=== PATIENT | female | born 1945 | race Two or more races ===

== ENCOUNTER 2020-05-11 10:28 | Outpatient (CLI) | payer MEDICARE ==
[2020-05-11 11:31] LABS: BASOPHILS % (AUTO) 0.3 % (0.0-2.0); HEMATOCRIT 34 % (33-45); LYMPHOCYTES # (AUTO) 0.6 /CMM (0.8-4.8); LYMPHOCYTES % (AUTO) 11.3 % (20.0-44.0); MEAN CORPUSCULAR HGB CONC 32 g/dl (31.0-36.0); MEAN CORPUSCULAR VOLUME 91 fL (82-100); MONOCYTES # (AUTO) 0.3 /CMM (0.1-1.30); NEUTROPHILS # (AUTO) 4.5 /CMM (1.8-8.9); NEUTROPHILS % (AUTO) 82.4 % (43.0-81.0); PLATELET COUNT (AUTO) 232 /CMM (150-450); RED BLOOD CELL COUNT(AUTO) 3.77 MIL/uL (4.0-5.2); WHITE BLOOD COUNT (AUTO) 5.5 K/uL (4.3-11.0)
[2020-05-11 11:56] LABS: ALANINE AMINOTRANSFERASE 43 U/L (12-78); ALBUMIN 3.5 g/dL (3.4-5.0); ALKALINE PHOSPHATASE 151 U/L (46-116); ASPARTATE AMINOTRANSFERASE 35 U/L (15-37); BILIRUBIN,TOTAL 0.4 mg/dL (0.2-1.0); CALCIUM, SERUM 7.8 mg/dL (8.5-10.1); CARBON DIOXIDE 23 mmol/L (21-32); CHLORIDE 103 mmol/L (98-107); CREATININE 2.9 mg/dL (0.6-1.3); GLUCOSE 177 mg/dL (74-106); MAGNESIUM 2.4 mg/dL (1.8-2.4); PHOSPHORUS 3.7 mg/dL (2.5-4.9); POTASSIUM 5.4 mmol/L (3.5-5.1); SODIUM SERUM 137 mmol/L (136-145); TOTAL PROTEIN, SERUM 7.5 g/dL (6.4-8.2); UREA NITROGEN, BLOOD 46 mg/dL (7-18)
== END 2020-05-11 23:59 | disposition home or self-care (01) ==
LOC: MSC 10:28
PROVIDERS: ATTEND Internal Medicine
DX: E83.51 Hypocalcemia (principal); I12.9 Hypertensive chronic kidney disease with stage 1 through stage 4 chronic kidney disease, or unspecified chronic kidney disease; N18.4 Chronic kidney disease, stage 4 (severe); D64.9 Anemia, unspecified; E78.5 Hyperlipidemia, unspecified; E03.9 Hypothyroidism, unspecified; Z79.899 Other long term (current) drug therapy
CPT/HCPCS: 36415; 80053; 82306; 83735; 83970; 84100; 85025; G0463

== ENCOUNTER 2020-06-01 10:39 | Outpatient (CLI) | payer MEDICARE, MEDICAID | END 2020-06-01 23:59 | disposition home or self-care (01) | LOC: MSC 10:39 | PROVIDERS: ATTEND Internal Medicine | DX: I16.0 Hypertensive urgency (principal); I12.9 Hypertensive chronic kidney disease with stage 1 through stage 4 chronic kidney disease, or unspecified chronic kidney disease; N18.4 Chronic kidney disease, stage 4 (severe); E83.9 Disorder of mineral metabolism, unspecified; D64.9 Anemia, unspecified; E78.5 Hyperlipidemia, unspecified; E03.9 Hypothyroidism, unspecified; Z79.899 Other long term (current) drug therapy ==

== ENCOUNTER 2020-06-01 11:38 | Emergency (ER) | payer MEDICARE, OTHER ==
[~2020-06-01] VITALS: Ht 149.9 cm; Wt 70.8 kg
--- NOTE | 2020-06-01 11:45 | NUR ---
BLOOD PRESSURE WAS ALEVATED AT THE CLINIC (YRQ=415), DENIES ANY SX OTHER THAN KNEE PAIN/SWELLING. PATIENT A/OX4, BREATHING EVEN AND UNLABORED, NO SOB NTOED, NEEDS ATTENDED, ATTACHED TO THE FOOD PRODUCTION ASSOCIATE.
[2020-06-01 12:06] LABS: BASOPHILS % (AUTO) 0.8 % (0.0-2.0); HEMATOCRIT 35 % (33-45); HEMOGLOBIN 11.1 g/dL (11.5-14.8); LYMPHOCYTES # (AUTO) 0.8 /CMM (0.8-4.8); LYMPHOCYTES % (AUTO) 23.6 % (20.0-44.0); MEAN CORPUSCULAR HGB CONC 32 g/dl (31.0-36.0); MEAN CORPUSCULAR VOLUME 92 fL (82-100); MONOCYTES # (AUTO) 0.3 /CMM (0.1-1.30); MONOCYTES % (AUTO) 8.7 % (2.0-12.0); NEUTROPHILS # (AUTO) 2.1 /CMM (1.8-8.9); NEUTROPHILS % (AUTO) 63.9 % (43.0-81.0); PLATELET COUNT (AUTO) 182 /CMM (150-450); RED BLOOD CELL COUNT(AUTO) 3.78 MIL/uL (4.0-5.2); WHITE BLOOD COUNT (AUTO) 3.3 K/uL (4.3-11.0)
[2020-06-01 12:38] LABS: ALANINE AMINOTRANSFERASE 24 U/L (12-78); ALBUMIN 3.2 g/dL (3.4-5.0); ALKALINE PHOSPHATASE 108 U/L (46-116); ASPARTATE AMINOTRANSFERASE 13 U/L (15-37); BILIRUBIN,TOTAL 0.3 mg/dL (0.2-1.0); CALCIUM, SERUM 7.7 mg/dL (8.5-10.1); CARBON DIOXIDE 26 mmol/L (21-32); CHLORIDE 107 mmol/L (98-107); CREATININE 2.5 mg/dL (0.6-1.3); GLUCOSE 163 mg/dL (74-106); MAGNESIUM 2.5 mg/dL (1.8-2.4); POTASSIUM 4.6 mmol/L (3.5-5.1); SODIUM SERUM 141 mmol/L (136-145); TOTAL PROTEIN, SERUM 6.7 g/dL (6.4-8.2); UREA NITROGEN, BLOOD 41 mg/dL (7-18)
[2020-06-01 13:16] VITALS: BP 182/99
--- NOTE | 2020-06-01 13:16 | NUR ---
PATIENT A/OX4, AMBULATORY WITH STEADY GAIT, NO DISTRESS NOTED, NO COMPLAINTS AT THIS TIME. Patient discharged to home in stable condition. Written and verbal after care instructions given. Patient verbalizes understanding of instruction.
== END 2020-06-01 13:17 | disposition home or self-care (01) ==
LOC: ER 11:38
DX: I10 Essential (primary) hypertension (principal); R60.0 Localized edema; E11.9 Type 2 diabetes mellitus without complications
CPT/HCPCS: 36415; 80053-TC; 83735-TC; 83970; 85025-TC

== ENCOUNTER 2020-08-09 09:33 | Outpatient (CLI) | payer MEDICARE, OTHER ==
[2020-08-09 13:03] LABS: ALANINE AMINOTRANSFERASE 18 U/L (12-78); ALBUMIN 2.9 g/dL (3.4-5.0); ALKALINE PHOSPHATASE 65 U/L (46-116); ASPARTATE AMINOTRANSFERASE 22 U/L (15-37); BILIRUBIN,TOTAL 0.3 mg/dL (0.2-1.0); CALCIUM, SERUM 8.5 mg/dL (8.5-10.1); CARBON DIOXIDE 22 mmol/L (21-32); CHLORIDE 106 mmol/L (98-107); CREATININE 3.1 mg/dL (0.6-1.3); GLUCOSE 119 mg/dL (74-106); MAGNESIUM 2.2 mg/dL (1.8-2.4); PHOSPHORUS 4.7 mg/dL (2.5-4.9); POTASSIUM 4.3 mmol/L (3.5-5.1); SODIUM SERUM 140 mmol/L (136-145); TOTAL PROTEIN, SERUM 6.6 g/dL (6.4-8.2); UREA NITROGEN, BLOOD 49 mg/dL (7-18)
== END 2020-08-09 23:59 | disposition home or self-care (01) ==
LOC: MSC 09:33
PROVIDERS: ATTEND Internal Medicine
DX: I12.9 Hypertensive chronic kidney disease with stage 1 through stage 4 chronic kidney disease, or unspecified chronic kidney disease (principal); E11.22 Type 2 diabetes mellitus with diabetic chronic kidney disease; N18.4 Chronic kidney disease, stage 4 (severe); Z79.4 Long term (current) use of insulin; E83.9 Disorder of mineral metabolism, unspecified; D64.9 Anemia, unspecified; E78.5 Hyperlipidemia, unspecified; E03.9 Hypothyroidism, unspecified; Z79.899 Other long term (current) drug therapy
CPT/HCPCS: 36415; 80053; 82607; 82746; 83036; 83735; 84100; G0463

== ENCOUNTER 2020-08-23 09:22 | Outpatient (CLI) | payer MEDICARE, OTHER ==
[2020-08-23 11:39] LABS: ALANINE AMINOTRANSFERASE 27 U/L (12-78); ALKALINE PHOSPHATASE 79 U/L (46-116); ASPARTATE AMINOTRANSFERASE 18 U/L (15-37); BILIRUBIN,TOTAL 0.3 mg/dL (0.2-1.0); CALCIUM, SERUM 8.7 mg/dL (8.5-10.1); CARBON DIOXIDE 26 mmol/L (21-32); CHLORIDE 104 mmol/L (98-107); CREATININE 3.2 mg/dL (0.6-1.3); GLUCOSE 176 mg/dL (74-106); MAGNESIUM 2.5 mg/dL (1.8-2.4); PHOSPHORUS 5.4 mg/dL (2.5-4.9); POTASSIUM 4.6 mmol/L (3.5-5.1); SODIUM SERUM 142 mmol/L (136-145); TOTAL PROTEIN, SERUM 6.9 g/dL (6.4-8.2); UREA NITROGEN, BLOOD 43 mg/dL (7-18)
== END 2020-08-23 23:59 | disposition home or self-care (01) ==
LOC: MSC 09:22
PROVIDERS: ATTEND Internal Medicine
DX: I12.9 Hypertensive chronic kidney disease with stage 1 through stage 4 chronic kidney disease, or unspecified chronic kidney disease (principal); E11.22 Type 2 diabetes mellitus with diabetic chronic kidney disease; N18.4 Chronic kidney disease, stage 4 (severe); Z79.4 Long term (current) use of insulin; E83.9 Disorder of mineral metabolism, unspecified; D64.9 Anemia, unspecified; E78.5 Hyperlipidemia, unspecified; E03.9 Hypothyroidism, unspecified; R53.83 Other fatigue; Z79.899 Other long term (current) drug therapy
CPT/HCPCS: 36415; 80053; 82607; 83036; 83735; 84100; G0463

== ENCOUNTER 2021-02-23 11:03 | Outpatient (CLI) | payer MEDICARE, OTHER | END 2021-02-23 23:59 | disposition home or self-care (01) | LOC: MSC 11:03 | PROVIDERS: ATTEND Internal Medicine | DX: Z01.818 Encounter for other preprocedural examination (principal); E11.22 Type 2 diabetes mellitus with diabetic chronic kidney disease; I12.9 Hypertensive chronic kidney disease with stage 1 through stage 4 chronic kidney disease, or unspecified chronic kidney disease; N18.4 Chronic kidney disease, stage 4 (severe); Z79.4 Long term (current) use of insulin; E83.9 Disorder of mineral metabolism, unspecified; D64.9 Anemia, unspecified; E78.5 Hyperlipidemia, unspecified; E03.9 Hypothyroidism, unspecified; R53.83 Other fatigue; Z79.890 Hormone replacement therapy; Z79.899 Other long term (current) drug therapy ==

== ENCOUNTER → 2021-06-27 | Outpatient (CLI) | payer MEDICARE, OTHER | END | disposition home or self-care (01) | LOC: MSC 14:15 | PROVIDERS: ATTEND Internal Medicine | DX: E11.22 Type 2 diabetes mellitus with diabetic chronic kidney disease (principal); I12.0 Hypertensive chronic kidney disease with stage 5 chronic kidney disease or end stage renal disease; N18.5 Chronic kidney disease, stage 5; Z79.4 Long term (current) use of insulin; E83.9 Disorder of mineral metabolism, unspecified; D64.9 Anemia, unspecified; E78.5 Hyperlipidemia, unspecified; E03.9 Hypothyroidism, unspecified; R53.83 Other fatigue; Z79.899 Other long term (current) drug therapy ==

== ENCOUNTER 2021-12-19 10:18 | Outpatient (CLI) | payer MEDICARE, OTHER ==
[2021-12-19 11:40] LABS: BASOPHILS % (AUTO) 0.5 % (0.0-2.0); EOSINOPHILS % (AUTO) 1.4 % (0.0-6.0); HEMATOCRIT 30 % (33-45); HEMOGLOBIN 9.9 g/dL (11.5-14.8); MEAN CORPUSCULAR HGB CONC 33 g/dl (31.0-36.0); MEAN CORPUSCULAR VOLUME 90 fL (82-100); MONOCYTES # (AUTO) 0.4 K/uL (0.1-1.30); MONOCYTES % (AUTO) 8.4 % (2.0-12.0); NEUTROPHILS # (AUTO) 3.6 K/uL (1.8-8.9); NEUTROPHILS % (AUTO) 70.7 % (43.0-81.0); PLATELET COUNT (AUTO) 267 K/uL (150-450); RED BLOOD CELL COUNT(AUTO) 3.31 MIL/uL (4.0-5.2)
[2021-12-19 12:34] LABS: ALANINE AMINOTRANSFERASE 15 U/L (12-78); ALBUMIN 3.3 g/dL (3.4-5.0); ALKALINE PHOSPHATASE 71 U/L (46-116); ASPARTATE AMINOTRANSFERASE 11 U/L (15-37); CALCIUM, SERUM 10.8 mg/dL (8.5-10.1); CARBON DIOXIDE 22 mmol/L (21-32); CHLORIDE 103 mmol/L (98-107); CREATININE 5.9 mg/dL (0.6-1.3); GLUCOSE 194 mg/dL (74-106); MAGNESIUM 1.9 mg/dL (1.8-2.4); PHOSPHORUS 5.5 mg/dL (2.5-4.9); POTASSIUM 5.2 mmol/L (3.5-5.1); SODIUM SERUM 138 mmol/L (136-145); TOTAL PROTEIN, SERUM 7.3 g/dL (6.4-8.2); UREA NITROGEN, BLOOD 69 mg/dL (7-18)
[2021-12-19 14:48] LABS: BILIRUBIN,TOTAL 0.3 mg/dL (0.2-1.0)
== END 2021-12-19 23:59 | disposition home or self-care (01) ==
LOC: MSC 10:18
PROVIDERS: ATTEND Internal Medicine
DX: I12.9 Hypertensive chronic kidney disease with stage 1 through stage 4 chronic kidney disease, or unspecified chronic kidney disease (principal); N18.4 Chronic kidney disease, stage 4 (severe); E83.9 Disorder of mineral metabolism, unspecified; M89.9 Disorder of bone, unspecified; D64.9 Anemia, unspecified; E78.5 Hyperlipidemia, unspecified; E03.9 Hypothyroidism, unspecified; Z79.890 Hormone replacement therapy; Z79.899 Other long term (current) drug therapy
CPT/HCPCS: 36415; 80053; 82306; 83735; 83970; 84100; 85025; G0463

== ENCOUNTER → 2022-01-23 | Outpatient (CLI) | payer MEDICARE, OTHER | END | disposition home or self-care (01) | LOC: MSC 14:30 | PROVIDERS: ATTEND Internal Medicine | DX: I12.9 Hypertensive chronic kidney disease with stage 1 through stage 4 chronic kidney disease, or unspecified chronic kidney disease (principal); N18.4 Chronic kidney disease, stage 4 (severe); N39.0 Urinary tract infection, site not specified; E83.9 Disorder of mineral metabolism, unspecified; M89.9 Disorder of bone, unspecified; D64.9 Anemia, unspecified; E78.5 Hyperlipidemia, unspecified; E03.9 Hypothyroidism, unspecified; Z79.890 Hormone replacement therapy; R53.83 Other fatigue ==

== ENCOUNTER 2022-04-26 09:27 | Outpatient (CLI) | payer MEDICARE, OTHER ==
[2022-04-26 10:32] LABS: BASOPHILS % (AUTO) 0.3 % (0.0-2.0); EOSINOPHILS % (AUTO) 0.3 % (0.0-6.0); HEMATOCRIT 31 % (33-45); HEMOGLOBIN 10.2 g/dL (11.5-14.8); LYMPHOCYTES # (AUTO) 0.8 K/uL (0.8-4.8); LYMPHOCYTES % (AUTO) 15.7 % (20.0-44.0); MEAN CORPUSCULAR HGB CONC 33 g/dl (31.0-36.0); MEAN CORPUSCULAR VOLUME 95 fL (82-100); MONOCYTES # (AUTO) 0.4 K/uL (0.1-1.30); MONOCYTES % (AUTO) 9.2 % (2.0-12.0); NEUTROPHILS # (AUTO) 3.6 K/uL (1.8-8.9); NEUTROPHILS % (AUTO) 74.5 % (43.0-81.0); PLATELET COUNT (AUTO) 226 K/uL (150-450); RED BLOOD CELL COUNT(AUTO) 3.24 MIL/uL (4.0-5.2); WHITE BLOOD COUNT (AUTO) 4.8 K/uL (4.3-11.0)
[2022-04-26 10:35] LABS: BILIRUBIN,URINE NEGATIVE (NEGATIVE); COLOR,URINE YELLOW (YELLOW); LEUKOCYTE ESTERASE ,URINE SMALL (NEGATIVE); NITRITE, URINE NEGATIVE (NEGATIVE); PH,URINE 5.5 (5.0-8.0); PROTEIN,URINE 100 mg/dl (NEGATIVE); UGLUCOSE 500 MG/DL mg/dL (NEGATIVE); UROBILINOGEN,URINE 0.2 EU/dL (0.2)
[2022-04-26 10:41] LABS: BACTERIA,URINE Few /HPF (None Seen); RBC,URINE 0-2 /HPF (0-2); SQUAMOUS EPITHELIAL CELL,UR Rare /HPF (None Seen); WBC,URINE 21-50 /HPF (0-3)
[2022-04-26 10:45] LABS: C-REACTIVE PROTEIN 1.2 mg/dL (0.0-0.9)
[2022-04-26 11:01] LABS: ALANINE AMINOTRANSFERASE 19 U/L (12-78); ALBUMIN 3.5 g/dL (3.4-5.0); ALKALINE PHOSPHATASE 53 U/L (46-116); ASPARTATE AMINOTRANSFERASE 11 U/L (15-37); BILIRUBIN,TOTAL 0.5 mg/dL (0.2-1.0); CALCIUM, SERUM 10.3 mg/dL (8.5-10.1); CARBON DIOXIDE 22 mmol/L (21-32); CHLORIDE 100 mmol/L (98-107); CREATININE 5.4 mg/dL (0.6-1.3); GLUCOSE 308 mg/dL (74-106); MAGNESIUM 2.4 mg/dL (1.8-2.4); PHOSPHORUS 5.5 mg/dL (2.5-4.9); POTASSIUM 5.1 mmol/L (3.5-5.1); SODIUM SERUM 134 mmol/L (136-145); TOTAL PROTEIN, SERUM 7.6 g/dL (6.4-8.2); UREA NITROGEN, BLOOD 63 mg/dL (7-18)
[2022-04-26 11:05] LABS: CREATININE, URINE 59.1 MG/DL (30.0-125.0); URINE TOTAL PROTEIN 161.2 mg/dL (0-11.9)
== END 2022-04-26 23:59 | disposition home or self-care (01) ==
LOC: MSC 09:27
PROVIDERS: ATTEND Internal Medicine
DX: N39.0 Urinary tract infection, site not specified (principal); I12.0 Hypertensive chronic kidney disease with stage 5 chronic kidney disease or end stage renal disease; N18.5 Chronic kidney disease, stage 5; Z76.82 Awaiting organ transplant status; E83.9 Disorder of mineral metabolism, unspecified; M89.9 Disorder of bone, unspecified; D64.9 Anemia, unspecified; E78.5 Hyperlipidemia, unspecified; E03.9 Hypothyroidism, unspecified; Z79.890 Hormone replacement therapy; R53.83 Other fatigue; Z79.899 Other long term (current) drug therapy
CPT/HCPCS: 85025; 87077; 82570; 87086; 83735; 83036; 84100; 85652; 87186; 81001; 36415; 80053; 83880; 86140; 82306; 83970; 84155; G0463

== ENCOUNTER → 2022-07-13 | Outpatient (CLI) | payer MEDICARE, OTHER | END | disposition home or self-care (01) | LOC: MSC 16:30 | PROVIDERS: ATTEND Internal Medicine | DX: I12.0 Hypertensive chronic kidney disease with stage 5 chronic kidney disease or end stage renal disease (principal); N18.5 Chronic kidney disease, stage 5; Z76.82 Awaiting organ transplant status; R53.83 Other fatigue; N39.0 Urinary tract infection, site not specified; E83.9 Disorder of mineral metabolism, unspecified; M89.9 Disorder of bone, unspecified; D64.9 Anemia, unspecified; E78.5 Hyperlipidemia, unspecified; E03.9 Hypothyroidism, unspecified; Z79.890 Hormone replacement therapy ==

== ENCOUNTER → 2022-07-16 | Outpatient (CLI) | payer MEDICARE, OTHER | END | disposition home or self-care (01) | LOC: MSC 16:30 | PROVIDERS: ATTEND Internal Medicine | DX: E83.9 Disorder of mineral metabolism, unspecified (principal); M89.9 Disorder of bone, unspecified; E83.51 Hypocalcemia; I12.0 Hypertensive chronic kidney disease with stage 5 chronic kidney disease or end stage renal disease; N18.5 Chronic kidney disease, stage 5; Z76.82 Awaiting organ transplant status; N39.0 Urinary tract infection, site not specified; D64.9 Anemia, unspecified; E78.5 Hyperlipidemia, unspecified; E03.9 Hypothyroidism, unspecified; Z79.890 Hormone replacement therapy; R53.83 Other fatigue ==

== ENCOUNTER 2022-10-20 13:39 | Inpatient (IN) | payer MEDICARE, OTHER ==
[~2022-10-20] VITALS: Ht 157.5 cm; Wt 61.2 kg
[2022-10-20] MEDS ORDERED: ONDANSETRON HCL/PF 4 MG/2 ML VIAL IV ONE (14:30)
[2022-10-20] MEDS ORDERED: MORPHINE SULFATE INJ 2 MG/ML DISP.SYRIN IV ONE (14:30)
--- NOTE | 2022-10-20 14:30 | NUR ---
pt seen by
--- NOTE | 2022-10-20 14:40 | NUR ---
labs and cultures collected
--- NOTE | 2022-10-20 14:57 | NUR ---
PT TAKEN TO RADIOLOGY FOR CT
[2022-10-20 15:02] LABS: BASOPHILS % (AUTO) 0.6 % (0.0-2.0); EOSINOPHILS % (AUTO) 1.8 % (0.0-6.0); HEMATOCRIT 27 % (33-45); HEMOGLOBIN 8.2 g/dL (11.5-14.8); LYMPHOCYTES # (AUTO) 1.1 K/uL (0.8-4.8); LYMPHOCYTES % (AUTO) 21.5 % (20.0-44.0); MEAN CORPUSCULAR HGB CONC 31 g/dl (31.0-36.0); MEAN CORPUSCULAR VOLUME 91 fL (82-100); MONOCYTES # (AUTO) 0.6 K/uL (0.1-1.30); MONOCYTES % (AUTO) 11.7 % (2.0-12.0); NEUTROPHILS # (AUTO) 3.4 K/uL (1.8-8.9); NEUTROPHILS % (AUTO) 64.4 % (43.0-81.0); PLATELET COUNT (AUTO) 252 K/uL (150-450); RED BLOOD CELL COUNT(AUTO) 2.91 MIL/uL (4.0-5.2); WHITE BLOOD COUNT (AUTO) 5.3 K/uL (4.3-11.0)
[2022-10-20] MEDS ORDERED: MORPHINE SULFATE INJ 4 MG/ML DISP.SYRIN ONE (15:17)
[2022-10-20] MEDS ORDERED: MORPHINE SULFATE INJ 2 MG/ML DISP.SYRIN IM ONE (15:30)
[2022-10-20 15:38] LABS: ALANINE AMINOTRANSFERASE 17 U/L (12-78); ALBUMIN 2.5 g/dL (3.4-5.0); ALKALINE PHOSPHATASE 100 U/L (46-116); ASPARTATE AMINOTRANSFERASE 16 U/L (15-37); BILIRUBIN,DIRECT 0.1 mg/dL (0.0-0.2); BILIRUBIN,TOTAL 0.3 mg/dL (0.2-1.0); CARBON DIOXIDE 29 mmol/L (21-32); CHLORIDE 103 mmol/L (98-107); CREATININE 3.7 mg/dL (0.6-1.3); GLUCOSE 222 mg/dL (74-106); POTASSIUM 4.7 mmol/L (3.5-5.1); SODIUM SERUM 137 mmol/L (136-145); TOTAL PROTEIN, SERUM 6.4 g/dL (6.4-8.2); UREA NITROGEN, BLOOD 30 mg/dL (7-18)
--- NOTE | 2022-10-20 16:31 | NUR ---
SLIP DUMPER AT BEDSIDE.
--- NOTE | 2022-10-20 16:45 | NUR ---
URINE COLLECTED AND SENT TO LAB
[2022-10-20 17:11] LABS: BILIRUBIN,URINE NEGATIVE (NEGATIVE); COLOR,URINE YELLOW (YELLOW); LEUKOCYTE ESTERASE ,URINE NEGATIVE (NEGATIVE); NITRITE, URINE NEGATIVE (NEGATIVE); PROTEIN,URINE 3+ mg/dl (NEGATIVE); UGLUCOSE 1+ mg/dL (NEGATIVE); UROBILINOGEN,URINE 0.2 EU/dL (0.2)
--- NOTE | 2022-10-20 17:13 | NUR ---
PT REFUSED PELVIC ULTRASOUNDS
[2022-10-20 17:22] LABS: BACTERIA,URINE Few /HPF (None Seen); RBC,URINE 0-2 /HPF (0-2); SQUAMOUS EPITHELIAL CELL,UR Few /HPF (None Seen)
--- NOTE | 2022-10-20 17:40 | NUR ---
MOVE SHEET SUBMITTED.
--- NOTE | 2022-10-20 17:48 | NUR ---
[facility] CALLED ATHLETIC AGENT PAGED.
--- NOTE | 2022-10-20 18:27 | NUR ---
PT REFUSED PERIPHERAL IV INSERTION
--- NOTE | 2022-10-20 18:41 | NUR ---
COVID SWAB COLLECTED AND SENT TO LAB.
--- NOTE | 2022-10-20 19:44 | NUR ---
pt in bed A/O X4 speaks farsi. given PBJ sandwich and jello. pt being admited for dialysis
--- NOTE | 2022-10-20 19:55 | NUR ---
RECEIVED PATIENT AWAKE, AAOX4. ABLE TO MAKE NEEDS KNOWN. PATIENT IS FOR ADMISSION D/T HD. PATIENT IS HIGH RISK FOR NON COMPLIANT. REFUSED TO ATTACHED TO RESIDENTIAL REAL ESTATE ASSISTANT. VITALS CHECKED. POSITIONED COMFORTABLY
--- NOTE | 2022-10-20 21:55 | NUR ---
REPORT GIVEN TO EBONI MADRID
[2022-10-20 22:05] VITALS: BP 154/77
--- NOTE | 2022-10-20 22:05 | NUR ---
STUDENT ADMISSIONS CLERKSEWER NOTE RECEIVED REPORT FROM ER NURSE JAIDA. PT ARRIVED FROM ER VIA GURNEY. PT IS BEING ADMITTED IN ROOM 320-1 WITH DIAGNOSIS OF VOLUME OVERLOAD. PT IS A/O X 4, ABLE TO VERBALIZE NEEDS, SPEAKS MOSTLY FARSI. PATIENT IS ABLE TO AMBULATE TO BATHROOM, WITH ASSIST. NO S/S OF RESPIRATORY DISTRESS NOTED. NO C/O PAIN AT THIS TIME. PT HAS NO IV ACCESS BECAUSE PT IS REFUSING TO HAVE IV INSERTED. PT IS EDUCATED ON IMPORTANCE OF HAVING IV, BUT PT STILL DECLINES. PT ON DIALYSIS T,TH,SAT, WITH LEFT AV FISTULA TO LEFT UA FOR HD. SKIN IS INTACT EXCEPT FOR SCRATCHES TO BACK. BELONGING CHECKED, AND BELONGING LIST COMPLETED, SIGNED, AND PLACED IN PT'S CHART. SAFETY MEASURES IMPLEMENTED: BED LOCKED, AND IN LOWEST POSITION, CALL LIGHT WITHIN REACH, SIDE RAILS UP X 2. WILL CONTINUE TO MONITOR PT.
[2022-10-20] MEDS ORDERED: ONDANSETRON HCL/PF 4 MG/2 ML VIAL IVP PRN (23:30)
[2022-10-20] MEDS ORDERED: DEXTROSE 50%-WATER 50 ML DISP.SYRIN IV PRN (23:30)
[2022-10-20] MEDS ORDERED: ACETAMINOPHEN 325 MG TABLET PO PRN (23:30)
[2022-10-20] MEDS ORDERED: HYDROCODONE/APAP 5/325MG TABLET PO PRN (23:30)
[2022-10-20] MEDS ORDERED: MORPHINE SULFATE INJ 2 MG/ML DISP.SYRIN IV PRN (23:30)
[2022-10-21] VITALS: BP 160/79
[2022-10-21 04:00] VITALS: BP 161/84
--- NOTE | 2022-10-21 06:00 | NUR ---
BEDSPREAD CUTTER NOTE PT C/O PAIN TO ABDOMEN. MORPHINE TAKEN, AND SCANNED. BUT PT HAS NO IV ACCESS, AND SHE REFUSES TO HAVE IV DONE. PT STATES THAT SHE IS NO LONGER IN PAIN. MORPHINE IS WASTED WITH CHARGE NURSE SARA.
[2022-10-21 06:27] LABS: BASOPHILS % (AUTO) 0.9 % (0.0-2.0); EOSINOPHILS % (AUTO) 1.9 % (0.0-6.0); HEMATOCRIT 27 % (33-45); HEMOGLOBIN 8.5 g/dL (11.5-14.8); LYMPHOCYTES # (AUTO) 1.3 K/uL (0.8-4.8); LYMPHOCYTES % (AUTO) 31.5 % (20.0-44.0); MEAN CORPUSCULAR HGB CONC 31 g/dl (31.0-36.0); MEAN CORPUSCULAR VOLUME 92 fL (82-100); MONOCYTES # (AUTO) 0.4 K/uL (0.1-1.30); MONOCYTES % (AUTO) 10.3 % (2.0-12.0); NEUTROPHILS # (AUTO) 2.2 K/uL (1.8-8.9); NEUTROPHILS % (AUTO) 55.4 % (43.0-81.0); PLATELET COUNT (AUTO) 234 K/uL (150-450); RED BLOOD CELL COUNT(AUTO) 2.98 MIL/uL (4.0-5.2)
[2022-10-21] MEDS: INSULIN REGULAR, HUMAN 100 UNIT/ML 3 ML VIAL SQ PRN ×2 (06:34→12:35)
[2022-10-21] MEDS: BLOOD SUGAR DIAGNOSTIC 1 EACH STRIP IN SCH ×2 (06:35→11:33)
[2022-10-21 06:43] LABS: CHOLESTEROL 110 mg/dL (<200); HDL CHOLESTEROL 52 mg/dL (40-60); LDL 55 mg/dL (0-99); TRIGLYCERIDES 81 mg/dL (30-150)
[2022-10-21 06:59] LABS: CALCIUM, SERUM 6.9 mg/dL (8.5-10.1); CARBON DIOXIDE 27 mmol/L (21-32); CHLORIDE 102 mmol/L (98-107); CREATININE 3.8 mg/dL (0.6-1.3); GLUCOSE 150 mg/dL (74-106); MAGNESIUM 2.3 mg/dL (1.8-2.4); PHOSPHORUS 3.8 mg/dL (2.5-4.9); POTASSIUM 4.5 mmol/L (3.5-5.1); SODIUM SERUM 137 mmol/L (136-145); UREA NITROGEN, BLOOD 32 mg/dL (7-18)
[2022-10-21 07:00] VITALS: BP 135/63
--- NOTE | 2022-10-21 07:01 | NUR ---
CORPORATE VP ADVERTISING & ONLINE CLOSING NOTE LEFT PATIENT AWAKE, IN BED. NO S/S OF RESPIRATORY DISTRESS, NO C/O PAIN AT THIS TIME. ALL NEEDS MEET. SAFETY MEASURES IMPLEMENTED: BED LOCKED, AND IN LOWEST POSITION, CALL LIGHT WITHIN REACH, SIDE RAILS UP X 2. WILL ENDORSE PT TO MORNING SHIFT NURSE FOR CHRIS.
--- NOTE | 2022-10-21 08:07 | NUR ---
RN OPENING NOTES RECEIVED PATIENT LYING IN BED. , SLEEPING. PATIENT IS A/O X 4, ABLE TO VERBALIZE NEEDS. BREATHING EVENLY AND UNLABORED ON ROOM AIR, AND TOLERATING RA WELL. NO SIGNS OF DISTRESS NOTED. PATIENT DENIES PAIN OR DISCOMFORT AT THIS TIME. PATIENT HAVE DIALYSIS ACCESS AT L AV,NO IV ACCESS. PATENT AND INTACT, SAFETY MEASURES IN PLACED, BED IN LOW, LOCKED POSITION. SIDE RAILS UP X 2, CALL LIGHT WITHIN REACH. WILL CONTINUE TO MONITOR.
[2022-10-21] MEDS ORDERED: FERR325T24 PO (08:50)
[2022-10-21] MEDS ORDERED: CARV25TA2 PO (08:50)
[2022-10-21] MEDS ORDERED: FURO40TA5 PO (08:50)
[2022-10-21] MEDS ORDERED: ATOR40TA PO (08:50)
[2022-10-21] MEDS ORDERED: EMPA25TA PO (08:50)
[2022-10-21] MEDS ORDERED: TERA1CAP11 PO (08:50)
[2022-10-21] MEDS ORDERED: PANT40TA49 PO (08:50)
[2022-10-21] MEDS ORDERED: ASPI-1420 PO (08:50)
[2022-10-21] MEDS ORDERED: LEVO50TA8 PO (08:50)
[2022-10-21] MEDS ORDERED: SEMA1PEN PO (08:50)
[2022-10-21] MEDS ORDERED: ERGO500093 PO (08:50)
[2022-10-21] MEDS ORDERED: AMLO-212 PO (08:50)
[2022-10-21 09:42] VITALS: BP 135/63
[2022-10-21] MEDS ORDERED: LIDOCAINE/PRILOCAINE 1 EA KIT TP ONE (10:00)
--- NOTE | 2022-10-21 16:30 | NUR ---
BURNT LIME DRAWER NOTES RECEIVED ORDER FOR DISCHARGE. PATIENT IS A/O X 4, ABLE TO MAKE NEEDS KNOWN. PATIENT IS BREATHING EVENLY AND UNLABORED ON ROOM AIR., NO SIGNS OF DISTRESS NOTED. PATIENT DOES NOT COMPLAIN OF PAIN AT THIS. PATIENT WAS GIVEN DISCHARGE INSTRUCTIONS BOTH VERBALLY AND IN WRITTEN FORM, VERBALIZED UNDERSTANDING. PATIENT BELONGINGS ACCOUNTED FOR, BELONGING SHEET SIGNED. PATIENT LEFT IN STABLE CONDITION VIA PRIVATE CAR.
== END 2022-10-21 16:35 | disposition home health service (06) | DRG 640 ==
LOC: ER 13:47 → TELE 21:18 → MED 10-21 08:27
PROVIDERS: ADMIT Nurse Practitioner Acute Care; ATTEND Nurse Practitioner Acute Care
PROC: 5A1D70Z Performance of Urinary Filtration, Intermittent, Less than 6 Hours Per Day (ICD-10-PCS; principal; 2022-10-21)
DX: E87.70 Fluid overload, unspecified (principal); N18.6 End stage renal disease; I12.0 Hypertensive chronic kidney disease with stage 5 chronic kidney disease or end stage renal disease; E44.0 Moderate protein-calorie malnutrition; K86.2 Cyst of pancreas; E11.22 Type 2 diabetes mellitus with diabetic chronic kidney disease; Z99.2 Dependence on renal dialysis; Z20.822 Contact with and (suspected) exposure to COVID-19; E78.5 Hyperlipidemia, unspecified; Z79.82 Long term (current) use of aspirin; Z79.84 Long term (current) use of oral hypoglycemic drugs; Z79.899 Other long term (current) drug therapy; E88.09 Other disorders of plasma-protein metabolism, not elsewhere classified; D63.1 Anemia in chronic kidney disease; N20.0 Calculus of kidney; N94.89 Other specified conditions associated with female genital organs and menstrual cycle; Z87.440 Personal history of urinary (tract) infections; M89.8X9 Other specified disorders of bone, unspecified site
CPT/HCPCS: 36415; 71045-TC; 80048-TC; 80061-TC; 80076-TC; 81001; 82962-TC; 83605-TC; 83735-TC; 84100-TC; 84484-TC; 85025-TC; 87040-TC; 87081-TC; 87086-TC; 90935-TC; C9803; G0378; J1815; J2270

== ENCOUNTER 2022-11-06 11:40 | Outpatient (CLI) | payer MEDICARE, OTHER ==
[~2022-11-06 11:40] MED LIST: AMLO-212 PO; ASPI-1420 PO; ATOR40TA PO; CARV25TA2 PO; EMPA25TA PO; ERGO500093 PO; FERR325T24 PO; FURO40TA5 PO; LEVO50TA8 PO; PANT40TA49 PO; SEMA1PEN PO; TERA1CAP11 PO
== END 2022-11-06 23:59 | disposition home or self-care (01) ==
LOC: MSC 11:40
PROVIDERS: ATTEND Internal Medicine
DX: I12.0 Hypertensive chronic kidney disease with stage 5 chronic kidney disease or end stage renal disease (principal); N18.6 End stage renal disease; Z99.2 Dependence on renal dialysis; Z76.82 Awaiting organ transplant status; E83.9 Disorder of mineral metabolism, unspecified; M89.9 Disorder of bone, unspecified; D64.9 Anemia, unspecified; E78.5 Hyperlipidemia, unspecified; E03.9 Hypothyroidism, unspecified; Z79.890 Hormone replacement therapy; R53.83 Other fatigue